=== PATIENT | female | born 1985 | race Caucasian/White ===

== ENCOUNTER 2020-03-29 19:50 | Emergency (ER) | payer OTHER ==
[2020-03-29 19:59] VITALS: BMI 31.8
--- NOTE | 2020-03-29 20:09 | PDOC ---
History of Present Illness - General Chief Complaint: Injury Stated Complaint: 8 MONTHS PREG/FALL History Source: Patient Exam Limitations: No Limitations - History of Present Illness Initial Comments: 03/29/20 20:37 34 yo 8 month female no sig medical hx presents to ED via EMS after blunt abdominal trauma and fall with abdominal pain, shoulder pain and bilateral hip pain. [place] the [place] shopping cart bumped her abdomen and leading her to loose balance and fell hitting her abdomen The patient is a 34 year old 8 months female with no significant past medical history who presents to the ED s/p fall with abdominal pain. As per EMS, patient fell at home and now complains of abdominal pain. Per patient, she cannot recall the events leading up to or post fall. Past History - Medical History Allergies/Adverse Reactions: Allergies Allergy/AdvReac Type Severity Reaction Status Date / Time No Known Allergies Allergy Verified 03/29/20 19:59 - Psycho-Social/Smoking History Smoking History: Never smoked Have you smoked in the past 12 months: No Information on smoking cessation initiated: No - Substance Abuse Hx (Audit-C & DAST Scrn) How often the patient has a drink containing alcohol: Never Score: In Men: 4 or > Positive; In Women: 3 or > Positive: 0 Screen Result (Pos requires Nsg. Audit-10AR): Negative In the last yr the pt used illegal drug/Rx for NonMed reason: No Score: Yes response is considered Positive: 0 Screen Result (Positive result requires Nsg. DAST-10): Negative *Physical Exam - Vital Signs Last Vital Signs Temp Pulse Resp BP Pulse Ox 98.1 F 106 H 22 H 124/78 96 03/29/20 19:54 03/29/20 19:54 03/29/20 19:54 03/29/20 19:54 03/29/20 19:54 Discharge - Discharge Information Problems reviewed: Yes Clinical Impression/Diagnosis: Trauma during Condition: Fair Disposition: TRANSFER ACUTE CARE/OTHER HOSP - Follow up/Referral - Patient Discharge Instructions - Post Discharge Activity
--- NOTE | 2020-03-29 20:24 | PDOC ---
Documentation entered by Mathew Bailey SCRIBE, acting as scribe for Cindi Chavez DO. Cindi Chavez DO: This documentation has been prepared by the Lynn cheek Nirvannie, SCRIBE, under my direction and personally reviewed by me in its entirety. I confirm that the documentation accurately reflects all work, treatment, procedures, and medical decision making performed by me. Attending Attestation - Resident Resident Name: Nikko Booker - ED Attending Attestation I have performed the following: I have examined & evaluated the patient, The case was reviewed & discussed with the resident, I agree w/resident's findings & plan, Exceptions are as noted - HPI HPI: 03/29/20 20:16 The patient is a 34 year old 8 months female with no significant past medical history who presents to the ED s/p fall with abdominal pain. As per EMS, patient fell at home and now complains of abdominal pain. Per patient, she cannot recall the events leading up to or post fall. - Physicial Exam PE: 03/29/20 20:16 Agree with resident exam. - Medical Decision Making 34-year-old female status post blunt trauma to the lower abdomen currently 8 weeks gestational age with pain to the lower pelvis and right hip Bedside fast was negative performed by another emergency department attending heart rate is in the 120s Due to gravid state as well as trauma and decreased heart rate will transfer to tertiary care trauma center, 03/29/20 19:54 Call placed to [facility] for a code red trauma transfer. 20:03 Resident, Dr. Alexandra Booker discussed case with Dr. Patel, trauma attending, case accepted. Transportation ETA 35min or less by [facility]. 03/29/20 20:22 Discharge - Discharge Information Problems reviewed: Yes Clinical Impression/Diagnosis: Trauma during Condition: Fair - Follow up/Referral - Patient Discharge Instructions - Post Discharge Activity
[2020-03-29 20:53] VITALS: BP 123/85; PULSE 86
[2020-03-29 20:56] LABS: BASO % 0.3 % (0-2.0); EOS % 1.2 % (0-4.5); HEMATOCRIT 38.4 % (32.4-45.2); HEMOGLOBIN 12.8 GM/dL (10.7-15.3); LYMPH % 23.6 % (8-40); MCH 30.3 pg (25.7-33.7); MCHC 33.3 g/dl (32.0-36.0); MEAN CELL VOLUME 91.1 fl (80-96); MEAN PLT VOLUME 7.3 fl (7.5-11.1); MONO % 7.3 % (3.8-10.2); NEUT % 67.6 % (42.8-82.8); PLATELET COUNT 283 K/MM3 (134-434); RBC 4.21 M/mm3 (3.60-5.2); WHITE BLOOD COUNT 12.7 K/mm3 (4.0-10.0)
[2020-03-29 21:03] LABS: INR 1.05 (0.83-1.09); PROTHROMBIN TIME (PATIENT) 12.4 SEC (9.7-13.0)
[2020-03-29 21:18] LABS: ALBUMIN 3.1 g/dl (3.4-5.0); BILIRUBIN,TOTAL 0.3 mg/dL (0.2-1); BLOOD UREA NITROGEN 9.3 mg/dL (7-18); CALCIUM 9.6 mg/dL (8.5-10.1); CREATININE 0.4 mg/dL (0.55-1.3); POTASSIUM 4.1 mmol/L (3.5-5.1); TOT PROT 6.8 g/dl (6.4-8.2)
[2020-03-30 06:03] VITALS: TEMP 98.7
== END 2020-03-29 21:00 | disposition short-term general hospital (02) ==
LOC: JER 19:50
DX: O9A.213 Injury, poisoning and certain other consequences of external causes complicating pregnancy, third trimester (principal)
CPT/HCPCS: 36415; 80053; 85025; 85610; 86850; 86900; 86901; 99284-25

== ENCOUNTER 2020-05-25 12:25 | Inpatient (IN) | payer OTHER ==
[2020-05-25 13:42] VITALS: BMI 39.0
[2020-05-25] MEDS ORDERED: CITRIC ACID/SODIUM CITRATE 30 ML UNIT-DOSE CUP PO ONE (14:28)
[2020-05-25] MEDS ORDERED: ELECTROLYTE-148 SOLN 1,000 ML IV SCH (14:30)
--- NOTE | 2020-05-25 14:37 | HP ---
Past Medical History - Primary Care Physician PCP:: Jelani Alcaraz - Admission History Source: Patient Limitations to Obtaining History: Language Barrier - Past Medical History ...: 3 ...Para: 1 ...Term: 1 ...Spon : 1 ...Living Children: 1 ...LMP: 08/21/19 - Past Surgical History Past Surgical History: Yes: (c section x one for failed dilatation) Hx Myomectomy: No Hx Transabdominal Cerclage: No - Smoking History Smoking history: Never smoked Have you smoked in the past 12 months: No - Alcohol/Substance Use Hx Alcohol Use: No History of Substance Use: reports: None - Social History History of Recent Travel: No Home Medications - Allergies Allergies/Adverse Reactions: Allergies Allergy/AdvReac Type Severity Reaction Status Date / Time No Known Allergies Allergy Verified 05/25/20 14:02 - Home Medications Home Medications: Ambulatory Orders Vit 93/Iron Fum/Folic [ Formula Tablet] 1 each PO DAILY 04/23/20 Review of Systems - Review of Systems Constitutional: reports: No Symptoms Eyes: reports: No Symptoms HENT: reports: No Symptoms Neck: reports: No Symptoms Cardiovascular: reports: No Symptoms Respiratory: reports: No Symptoms Gastrointestinal: reports: No Symptoms Genitourinary: reports: No Symptoms Breasts: reports: No Symptoms Reported Musculoskeletal: reports: No Symptoms Integumentary: reports: No Symptoms Neurological: reports: No Symptoms Endocrine: reports: No Symptoms Hematology/Lymphatic: reports: No Symptoms Psychiatric: reports: No Symptoms Physical Exam - Maternity Vital Signs: Vital Signs Temperature 98.2 F 05/25/20 13:36 Pulse Rate 82 05/25/20 13:36 Respiratory Rate 18 05/25/20 13:36 Blood Pressure 118/70 05/25/20 13:36 O2 Sat by Pulse Oximetry (%) Constitutional: Yes: Well Nourished, No Distress, Calm, Obese Eyes: Yes: WNL, Conjunctiva Clear, EOM Intact HENT: Yes: WNL, Atraumatic, Normocephalic Neck: Yes: WNL, Supple, Trachea Midline Cardiovascular: Yes: WNL, Regular Rate and Rhythm Breast(s): Yes: WNL - Abdominal Exam/OB Fundal Height: 40 Number of Fetuses: Single Presentation: Vertex Contractions: No Intensity: Unaware Monitor Mode: External Heart Rate Location: LLQ Accelerations: Non-Uniform Decelerations: None - Vaginal Exam/OB Speculum Exam: Yes Dilatation (cm): 0 Effacement (%): 0 Amniotic Membrane Status: Intact Presentation: Vertex/Position Station: -3 - Physical Exam Musculoskeletal: Yes: WNL Extremities: Yes: WNL Edema: Yes Edema: LLE: Trace, RLE: Trace Deep Tendon Reflex Grade: Normal +2 ...Motor Strength: WNL Psychiatric: Yes: WNL Hemorrhage Risk Assessment - Risk Factors Medium Risk Factors: Yes: Prior , uterine surgery,or multiple laparotomies Risk Score: 1 Risk Level: Medium Risk Problem List - Problems (1) with 39 completed weeks gestation Code(s): Z3A.39 - 39 WEEKS GESTATION OF (2) Previous section complicating Code(s): O34.219 - MATERNAL CARE FOR UNSP TYPE SCAR FROM PREVIOUS DEL Assessment/Plan requesting repeat c/s, vs repeat c/s explained , ri`sks `associ`ated w`itg c/s has explained to patient
[2020-05-25 14:42] LABS: BASO % 0.3 % (0-2.0); EOS % 0.4 % (0-4.5); HEMOGLOBIN 11.4 GM/dL (10.7-15.3); LYMPH % 19.7 % (8-40); MCH 31.4 pg (25.7-33.7); MCHC 34.6 g/dl (32.0-36.0); MEAN CELL VOLUME 90.7 fl (80-96); MEAN PLT VOLUME 7.4 fl (7.5-11.1); MONO % 6.7 % (3.8-10.2); NEUT % 72.9 % (42.8-82.8); PLATELET COUNT 241 K/MM3 (134-434); RBC 3.64 M/mm3 (3.60-5.2); RDW 13.5 % (11.6-15.6); WHITE BLOOD COUNT 9.9 K/mm3 (4.0-10.0)
[2020-05-25] MEDS ORDERED: SUCCINYLCHOLINE CHLORIDE 200 MG/10 ML SYRINGE ONE (14:46)
[2020-05-25] MEDS ORDERED: morphine SULFATE/PF 0.5 MG/ML (2cc Syringe - QUVA) ONE (14:46)
[2020-05-25] MEDS ORDERED: PROPOFOL 20 ML ONE (14:46)
[2020-05-25] MEDS ORDERED: MIDAZOLAM HCL 2 MG/2 ML SINGLE DOSE VIAL ONE (14:46)
[2020-05-25] MEDS ORDERED: morphine SULFATE/PF 0.5 MG/ML (2cc Syringe - QUVA) SPIN ONE (14:50)
[2020-05-25 14:53] LABS: INR 1.04 (0.83-1.09); PROTHROMBIN TIME (PATIENT) 12.3 SEC (9.7-13.0)
[2020-05-25 14:56] LABS: ACTIVATED PTT 27.2 SECONDS (25.2-36.5)
[2020-05-25] MEDS ORDERED: ePHEDrine SULFATE 50 MG/1 ML AMPULE ONE (15:00)
[2020-05-25] MEDS ORDERED: PHENYLEPHRINE HCL 10 MG/1 ML SINGLE DOSE VIAL ONE (15:00)
[2020-05-25] MEDS ORDERED: OXYTOCIN 20 UNITS in 0.9% NS 20 UNIT/1,000 ML INFUS.BAG IV ONE (15:03)
[2020-05-25 15:13] LABS: ALBUMIN 2.2 g/dl (3.4-5.0); BILIRUBIN,TOTAL 0.4 mg/dL (0.2-1); BLOOD UREA NITROGEN 9.1 mg/dL (7-18); CREATININE 0.3 mg/dL (0.55-1.3); POTASSIUM 4.2 mmol/L (3.5-5.1); TOT PROT 4.9 g/dl (6.4-8.2)
[2020-05-25 15:18] LABS: CALCIUM 6.8 mg/dL (8.5-10.1)
[2020-05-25 15:55] LABS: CORD BASE EXCESS -1.4 mmol/L (0-2); CORD HCO3 24.3 mmHg (20-29); CORD PCO2 44.6 mmHg (30-78); CORD pH 7.354 (7.14-7.44)
[2020-05-25 15:56] LABS: CORD BASE EXCESS 0.4 mmol/L (0-2); CORD HCO3 27.5 mmHg (20-29); CORD PCO2 54.8 mmHg (30-78); CORD pH 7.319 (7.14-7.44)
[2020-05-25] MEDS ORDERED: ONDANSETRON 4 MG/2 ML VIAL IVPUSH PRN (15:58)
[2020-05-25] MEDS ORDERED: BENZOCAINE 28 GM HEMORRHOIDAL OINTMENT PR PRN (16:32)
[2020-05-25] MEDS ORDERED: WITCH HAZEL 50% (TUCKS) 40 PAD/JAR PAD TP PRN (16:32)
[2020-05-25] MEDS ORDERED: oxyCODONE HCL 5 MG TABLET PO PRN ×2 (16:32)
[2020-05-25] MEDS ORDERED: METHYLERGONOVINE MALEATE 0.2 MG/1 ML AMP IM PRN (16:32)
[2020-05-25] MEDS ORDERED: BENZOCAINE 20% 57 GM BOTTLE TP PRN (16:32)
[2020-05-25] MEDS ORDERED: diphenhydrAMINE HCL 25 MG CAPSULE (FP) PO PRN (16:32)
--- NOTE | 2020-05-25 16:37 | OP ---
Operative Note - Note: Operative Date: 05/25/20 Pre-Operative Diagnosis: 39 weeks, previous c/s Operation: repeat LST c/s Findings: live baby girl 9/9 ROT, light mec. AF Surgeon: Jelani Alcaraz Computer Forensic Examiner: Andrew Valdez Anesthesia: Spinal Specimens Removed: placenta Estimated Blood Loss (mls): 500 Drains & Tubes with Location: damon Fluid Volume Replaced (mls): 0 Operative Report Dictated: Yes
[2020-05-25] MEDS ORDERED: OXYTOCIN 20 UNITS in 0.9% NS 20 UNIT/1,000 ML INFUS.BAG IV SCH (16:45)
[2020-05-25] MEDS ORDERED: DEXTROSE 5%-LACTATED RINGERS 1,000 ML IV SCH (16:45)
[2020-05-25] MEDS: IBUPROFEN 800 MG/8 ML IJ IVPB PRN ×2 (16:45→22:57)
[2020-05-25] MEDS ORDERED: IBUPROFEN 800 MG/8 ML IJ IVPB ONE (16:59)
--- NOTE | 2020-05-25 17:43 | OP ---
DATE OF OPERATION: 05/25/2020 PREOPERATIVE DIAGNOSIS: , 39 weeks, previous section, request of repeat section. POSTOPERATIVE DIAGNOSIS: , 39 weeks, previous section, request of repeat section. PROCEDURE: Repeat low segment transverse section. SURGEON: Sacha Alcaraz MD. ELECTRO OPTICAL ENGINEER: CATRACHO Owens. ANESTHESIA: Spinal. ESTIMATED BLOOD LOSS: 500 mL. FINDINGS: A live baby girl ROT position, Apgars 9 and 9, light meconium amniotic fluid was noted. OPERATION: Patient was taken to operating room with adequate epidural anesthesia. Abdomen and perineum were prepped and draped. Pfannenstiel abdominal skin incision was made over the previous incision. Abdominal wall was cut layer by layer until the peritoneum was exposed and incised. Upon entering the abdominal cavity, the lower uterine segment was identified, and uterovesical fold of the peritoneum was established. The bladder was pushed down. A low transverse incision was made. The incision extended laterally with bandage scissors. Amniotic sac was entered. Light meconium amniotic fluid noted. Head delivered from ROT position. Nasopharynx was suctioned. A live baby girl was delivered, Apgars 9 and 9. Placenta was delivered manually. Uterine cavity was cleared of all remaining tissue. Uterine incision was closed in 2 layers, the 1st layer with 0 Biosyn continuous suture, the 2nd layer with 0 Biosyn imbricating the 1st layer. Bladder flap was closed with 0 Biosyn continuous suture. Both tubes and ovaries were checked and were normal. No active bleeding was seen. All the lap, sponge, and instrument counts were correct. Peritoneum was closed with 0 Biosyn continuous suture. Muscles were brought together interrupted suture with 0 Biosyn. Fascia was closed with 0 Biosyn continuous sutures. Subcutaneous fat interrupted sutures 0 Biosyn, and the skin was closed with 3-0 Vicryl subcuticular continuous suture. The patient tolerated the procedure well and left the OR in good condition. SACHA ALCARAZ M.D. [id number]
[2020-05-25] MEDS: CEFAZOLIN 1 GM/D5W 1 GM/50 ML BAG IVPB SCH (18:17)
[2020-05-26] MEDS: CEFAZOLIN 1 GM/D5W 1 GM/50 ML BAG IVPB SCH (00:59)
--- NOTE | 2020-05-26 07:26 | PN ---
Progress Note (short form) - Note Progress Note: pod 1 s/p repeat c/s , doing wel, no excess vaginal bleeding CBC, BMP 05/25/20 14:09 05/25/20 14:09 Last Vital Signs Temp Pulse Resp BP Pulse Ox 98.2 F 79 20 100/53 L 97 05/26/20 06:00 05/26/20 06:00 05/26/20 06:00 05/26/20 06:00 05/25/20 17:52 abdomen soft, no distension, no cva BS present incision dry, clean , no discharge no calf tenderness plan ambulate , cbc advance diet Problem List - Problems (1) with 39 completed weeks gestation Code(s): Z3A.39 - 39 WEEKS GESTATION OF (2) Previous section complicating Code(s): O34.219 - MATERNAL CARE FOR UNSP TYPE SCAR FROM PREVIOUS DEL
[2020-05-26 09:00] LABS: BASO % 0.2 % (0-2.0); EOS % 0.5 % (0-4.5); HEMATOCRIT 31.2 % (32.4-45.2); HEMOGLOBIN 10.6 GM/dL (10.7-15.3); LYMPH % 15.5 % (8-40); MCH 30.8 pg (25.7-33.7); MEAN CELL VOLUME 90.6 fl (80-96); MEAN PLT VOLUME 7.3 fl (7.5-11.1); MONO % 7.4 % (3.8-10.2); NEUT % 76.4 % (42.8-82.8); PLATELET COUNT 237 K/MM3 (134-434); RBC 3.44 M/mm3 (3.60-5.2); RDW 13.8 % (11.6-15.6); WHITE BLOOD COUNT 11.1 K/mm3 (4.0-10.0)
[2020-05-26] MEDS: IBUPROFEN 600 MG TABLET (FP) PO PRN ×2 (10:44→21:26)
[2020-05-26] MEDS: SIMETHICONE 80 MG TAB.CHEW (FP) PO PRN ×2 (10:44→21:25)
[2020-05-26] MEDS: ENOXAPARIN NA (PORCINE) 40 MG/0.4 ML DISP.SYRIN SQ SCH (10:45)
[2020-05-26] MEDS: ACETAMINOPHEN 325 MG TABLET (FP) PO PRN ×2 (10:45→21:25)
[2020-05-26] MEDS: IBUPROFEN 800 MG/8 ML IJ IVPB PRN (14:31)
[2020-05-26] MEDS ORDERED: BISACODYL 10 MG SUPP.RECT PR PRN (16:32)
[2020-05-26 20:01] LABS: EPI CELLS 28 /uL (0-25.1); HYALINE CASTS 1 /uL (0-3.1); PH,URINE 5.5 (5.0-8.0); URINE APPEARANCE CLEAR; URINE BACTERIA 368 /uL (0-1359); URINE BILIRUBIN NEGATIVE (NEGATIVE); URINE COLOR ORANGE; URINE GLUCOSE (UA) NEGATIVE (NEGATIVE); URINE KETONE 1+ (NEGATIVE); URINE LEUK ESTERASE 1+ (NEGATIVE); URINE NITRITE NEGATIVE (NEGATIVE); URINE PROTEIN TRACE (NEGATIVE); URINE RBC 3292 /uL (0-23.9); URINE UROBILINOGEN 0.2 mg/dL (0.2-1.0); URINE WBC 62 /uL (0-25.8)
[2020-05-27] MEDS: IBUPROFEN 600 MG TABLET (FP) PO PRN ×2 (03:38→21:44)
[2020-05-27] MEDS: ACETAMINOPHEN 325 MG TABLET (FP) PO PRN ×3 (03:38→21:43)
--- NOTE | 2020-05-27 08:36 | PN ---
Post Progress Note - Subjective Subjective: pt c/o pain 4/10 . voiding without difficulty . bm not done Post Day: 2 Type of Delivery: Repeat C/S Vital Signs: Vital Signs Temperature 98.3 F 05/26/20 22:00 Pulse Rate 91 H 05/26/20 22:00 Respiratory Rate 18 05/26/20 22:00 Blood Pressure 112/63 05/26/20 22:00 O2 Sat by Pulse Oximetry (%) 97 05/25/20 17:52 Breast Exam: Yes: Soft, Other (attempting to breast feed ). No: Engorged Uterus: Yes: Fundus Firm, Non-tender Incision: Yes: Dressing dry and intact (to be changed ) Abdomen/GI: Yes: Abdomen soft, Passing flatus, Tolerating PO (reg diet ). No: Abdominal Distention, Tender Lochia: Yes: Rubra Lochia, amount: Moderate Extremities: Yes: Calves non-tender Perineum: Yes: Intact Activity: Ambulating - Labs Labs: CBC WBC 11.1 K/mm3 (4.0-10.0) H 05/26/20 07:39 RBC 3.44 M/mm3 (3.60-5.2) L 05/26/20 07:39 Hgb 10.6 GM/dL (10.7-15.3) L 05/26/20 07:39 Hct 31.2 % (32.4-45.2) L 05/26/20 07:39 MCV 90.6 fl (80-96) 05/26/20 07:39 MCH 30.8 pg (25.7-33.7) 05/26/20 07:39 MCHC 34.0 g/dl (32.0-36.0) 05/26/20 07:39 RDW 13.8 % (11.6-15.6) 05/26/20 07:39 Plt Count 237 K/MM3 (134-434) 05/26/20 07:39 MPV 7.3 fl (7.5-11.1) L 05/26/20 07:39 Absolute Neuts (auto) 8.5 K/mm3 (1.5-8.0) H 05/26/20 07:39 Neutrophils % 76.4 % (42.8-82.8) 05/26/20 07:39 Lymphocytes % 15.5 % (8-40) D 05/26/20 07:39 Monocytes % 7.4 % (3.8-10.2) 05/26/20 07:39 Eosinophils % 0.5 % (0-4.5) 05/26/20 07:39 Basophils % 0.2 % (0-2.0) 05/26/20 07:39 Nucleated RBC % 0 % (0-0) 05/26/20 07:39 Problem List - Problems (1) Status post section routine follow-up Code(s): Z39.2 - ENCOUNTER FOR ROUTINE FOLLOW-UP; Z98.891 - HISTORY OF UTERINE SCAR FROM PREVIOUS SURGERY Assessment/Plan stable s/p rc/section day #2 . Plan encourage deep breathing , ambulatiion .plenty po fluids discharge tomorrow.
[2020-05-27] MEDS: ENOXAPARIN NA (PORCINE) 40 MG/0.4 ML DISP.SYRIN SQ SCH (09:43)
[2020-05-27] MEDS: SIMETHICONE 80 MG TAB.CHEW (FP) PO PRN ×2 (09:43→21:43)
[2020-05-27] MEDS ORDERED: SENNOSIDES/DOCUSATE COMBO (SENNA PLUS) TABLET (UD) PO PRN (22:00)
[2020-05-28] MEDS: SIMETHICONE 80 MG TAB.CHEW (FP) PO PRN (03:16)
[2020-05-28] MEDS: IBUPROFEN 600 MG TABLET (FP) PO PRN ×2 (03:16→09:43)
[2020-05-28] MEDS: ACETAMINOPHEN 325 MG TABLET (FP) PO PRN ×2 (03:18→09:42)
[2020-05-28 08:44] LABS: BASO % 0.3 % (0-2.0); EOS % 1.8 % (0-4.5); HEMATOCRIT 30.4 % (32.4-45.2); HEMOGLOBIN 10.4 GM/dL (10.7-15.3); LYMPH % 26.9 % (8-40); MCHC 34.2 g/dl (32.0-36.0); MEAN CELL VOLUME 90.7 fl (80-96); MEAN PLT VOLUME 7.2 fl (7.5-11.1); MONO % 7.4 % (3.8-10.2); NEUT % 63.6 % (42.8-82.8); PLATELET COUNT 259 K/MM3 (134-434); RBC 3.35 M/mm3 (3.60-5.2); RDW 13.7 % (11.6-15.6); WHITE BLOOD COUNT 8.2 K/mm3 (4.0-10.0)
[2020-05-28] MEDS: ENOXAPARIN NA (PORCINE) 40 MG/0.4 ML DISP.SYRIN SQ SCH ×2 (09:41→09:45)
[2020-05-28 12:44] VITALS: BP 111/74; PULSE 71; TEMP 97.7
--- NOTE | 2020-05-28 12:45 | DS ---
Physical Exam-DIRECTOR OF PLANNING Vital Signs: Vital Signs Temperature 99.5 F 05/27/20 22:00 Pulse Rate 87 05/27/20 22:00 Respiratory Rate 18 05/27/20 22:00 Blood Pressure 114/68 05/27/20 22:00 O2 Sat by Pulse Oximetry (%) 97 05/25/20 17:52 Constitutional: Yes: Well Nourished, Obese, Other (pain scale5/10) Eyes: Yes: WNL HENT: Yes: WNL Neck: Yes: WNL Cardiovascular: Yes: WNL Respiratory: Yes: WNL Gastrointestinal: Yes: WNL, Normal Bowel Sounds, Abdomen, Obese. No: Distention, Vomiting Renal/: Yes: WNL, Other (voiding without difficulty). No: CVA Tenderness - Left, CVA Tenderness - Right ....Post : Yes: Uterus firm, Uterus non-tender, Moderate lochia rubra Breast(s): Yes: WNL (BF , not engorged) Musculoskeletal: Yes: WNL Extremities: Yes: WNL. No: Calf Tenderness Edema: LLE: 1+, RLE: 1+ Wound/Incision: Yes: Clean/Dry, Well Approximated, Sutures Intact, Steri Strips, Open to air. No: Draining, Reddened, Bleeding, Excoriated Neurological: Yes: WNL, Alert, Oriented ...Motor Strength: WNL Psychiatric: Yes: WNL, Alert, Oriented Labs: CBC, BMP 05/28/20 07:31 05/25/20 14:09 Delivery - Delivery Type of Anesthesia: Spinal EBL (cc): 500 Delivery, Single - Stages of Labor Date of Delivery: 05/25/20 Time of Delivery: 15:13 Time Placenta Delivered: 15:14 - Condition of Infant Underwriting Account Representative/County Or City Auditor Present: Yes Name: Meagan Han Gender: Female Weight: 8 lb 12 oz Position: OA Total Hours ROM (Hrs/Mins): 1M - 1 Minute Total Score: 9 5 Minutes Total Score: 9 - [place] Feeding Plan Initial Plan: Elected not to breastfeed exclusively throughout hospitalization Remarks - Remarks Remarks: post op course uneventful, discharge today. she will follow with Dr Alcaraz in the clinic in 1 wk Discharge Summary Problems reviewed: Yes Reason For Visit: Current Active Problems with 39 completed weeks gestation (Acute) Previous section complicating (Acute) Status post section routine follow-up (Acute) Condition: Stable - Instructions Diet, Activity, Other Instructions: Discharge Instructions * Out of Bed * * Regular Diet * Alisha Care * Avoid sex for 6 weeks * rtc 1 week for wound check If you experience excessive bleeding or fever over 101 degrees, call doctor, the clinic or go to the Emergency Room. Referrals: Jelani Alcaraz MD [Staff Physician] - Disposition: HOME - Home Medications Comprehensive Discharge Medication List: Ambulatory Orders Vit 93/Iron Fum/Folic [ Formula Tablet] 1 each PO DAILY 04/23/20 Acetaminophen [Tylenol .Regular Strength -] 500 mg PO Q4H PRN #30 tablet 05/26/20 Ibuprofen [Motrin -] 600 mg PO Q4H PRN #30 tablet 05/26/20 Iron Polysacch/Iron Heme Polyp [Feosol Bifera 28 mg Caplet] 28 mg PO DAILY #30 tablet 05/26/20 Miscellaneous Medical Supply [Breast Pump, Electronic] 1 each NR ASDIR #1 unit 05/26/20
--- NOTE | 2020-05-29 17:57 | PATH ---
Surgical Pathology Report Patient Name: LISA DIOP Med. Rec. 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 Specimen(s) Received PLACENTA Clinical History Final Diagnosis PLACENTA, SECTION: 422 G THIRD TRIMESTER PLACENTA WITH TRIVASCULAR UMBILICAL CORD AND UNREMARKABLE PLACENTAL MEMBRANES. Electronically Signed Jacinta Wakefield M.D. Gross Description The specimen is received fresh labeled placenta and is a 422 gram, 17 x17 x 1.8cm. placenta with attached membranes and umbilical cord. The attached membranes are glistening, translucent, and insert marginally. The umbilical cord measures 20 cm. in length and averages 1.2 cm. in diameter. The cord inserts centrally, 5 centimeter to the nearest margin. No true knots or strictures are identified. Cut surface of the umbilical cord reveals 3 vessels. Sectioning reveals red-brown, spongy parenchyma. No lesions are identified. Industrial Engineering Intern sections are submitted in three cassettes as follows: 1- membrane rolls and umbilical cord; 2-3- full thickness sections of placenta KWS/05/26/2020 onielki/05/26/2020
== END 2020-05-28 13:10 | disposition home or self-care (01) | DRG 540 ==
LOC: JLDR 12:25 → J3W 17:35
PROVIDERS: ADMIT Obstetrics & Gynecology; ATTEND Obstetrics & Gynecology
PROC: 10D00Z1 Extraction of Products of Conception, Low, Open Approach (ICD-10-PCS; principal; 2020-05-25)
DX: O82 Encounter for cesarean delivery without indication (principal); O34.211 Maternal care for low transverse scar from previous cesarean delivery; E66.9 Obesity, unspecified; O99.214 Obesity complicating childbirth; Z37.0 Single live birth; Z3A.39 39 weeks gestation of pregnancy; O77.0 Labor and delivery complicated by meconium in amniotic fluid
CPT/HCPCS: 36415; 36600; 80053; 81003; 82803; 85025; 85610; 85730; 86762; 86780; 86850; 86900; 86901; 87340; 88307-TC

== ENCOUNTER 2021-06-27 10:18 | Emergency (ER) | payer OTHER ==
[2021-06-27 10:33] VITALS: BP 131/69; PULSE 107; TEMP 97.7; BMI 34.3
[2021-06-27 11:48] LABS: BASO % 0.2 % (0-2.0); EOS % 1.2 % (0-4.5); HEMATOCRIT 34.6 % (32.4-45.2); HEMOGLOBIN 11.9 GM/dL (10.7-15.3); LYMPH % 22.9 % (8-40); MCH 30.7 pg (25.7-33.7); MCHC 34.4 g/dl (32.0-36.0); MEAN PLT VOLUME 6.9 fl (7.5-11.1); MONO % 6.4 % (3.8-10.2); NEUT % 69.3 % (42.8-82.8); PLATELET COUNT 310 10^3/uL (134-434); RBC 3.89 M/mm3 (3.60-5.2); RDW 12.8 % (11.6-15.6); WHITE BLOOD COUNT 12.2 K/mm3 (4.0-10.0)
[2021-06-27 11:50] LABS: URINE APPEARANCE CLEAR; URINE BILIRUBIN NEGATIVE (NEGATIVE); URINE COLOR YELLOW; URINE GLUCOSE (UA) NEGATIVE (NEGATIVE); URINE KETONE NEGATIVE (NEGATIVE); URINE LEUK ESTERASE NEGATIVE (NEGATIVE); URINE NITRITE NEGATIVE (NEGATIVE); URINE PROTEIN NEGATIVE (NEGATIVE)
[2021-06-27 12:14] LABS: BLOOD UREA NITROGEN 8.2 mg/dL (7-18)
[2021-06-27 12:17] LABS: CREATININE 0.4 mg/dL (0.55-1.3)
[2021-06-27 12:19] LABS: BILIRUBIN,TOTAL 0.3 mg/dL (0.2-1); TOT PROT 6.4 g/dl (6.4-8.2)
== END 2021-06-27 13:45 | disposition home or self-care (01) ==
LOC: JERFT 10:18
DX: O26.852 Spotting complicating pregnancy, second trimester (principal); Z3A.14 14 weeks gestation of pregnancy
CPT/HCPCS: 36415; 76815; 80053; 81003; 84702; 85025; 86850; 86900; 86901; 87086; 99284-25

== ENCOUNTER 2021-12-11 07:45 | Inpatient (IN) | payer OTHER ==
[2021-12-11] MEDS ORDERED: CITRIC ACID/SODIUM CITRATE 30 ML UNIT-DOSE CUP PO ONE (08:53)
[2021-12-11] MEDS ORDERED: ELECTROLYTE-148 SOLN 1,000 ML IV SCH (09:00)
[2021-12-11 09:24] VITALS: BMI 42.0
[2021-12-11] MEDS ORDERED: OXYTOCIN 20 UNITS in 0.9% NS 20 UNIT/1,000 ML INFUS.BAG IV ONE (09:52)
[2021-12-11] MEDS ORDERED: morphine SULFATE/PF 1 MG/2 ML (2cc Syringe - QUVA) ONE (09:54)
[2021-12-11] MEDS ORDERED: morphine SULFATE/PF 1 MG/2 ML (2cc Syringe - QUVA) EP ONE (10:30)
[2021-12-11] MEDS ORDERED: ONDANSETRON 4 MG/2 ML VIAL IVPUSH PRN (10:30)
[2021-12-11] MEDS ORDERED: KETOROLAC TROMETHAMINE 30 MG/1 ML VIAL ONE (11:23)
[2021-12-11] MEDS ORDERED: ceFAZolin SODIUM 1 GM VIAL ONE ×2 (11:23→17:51)
[2021-12-11] MEDS ORDERED: DEXAMETHASONE SOD PHOSPHATE 4 MG/1 ML VIAL ONE (11:23)
[2021-12-11] MEDS ORDERED: ONDANSETRON 4 MG/2 ML VIAL ONE ×2 (11:23→11:57)
[2021-12-11] MEDS ORDERED: OXYTOCIN 10 UNITS/ML VIAL ONE (11:23)
[2021-12-11] MEDS ORDERED: ACETAMINOPHEN 325 MG TABLET (FP) PO PRN (11:55)
[2021-12-11] MEDS ORDERED: METHYLERGONOVINE MALEATE 0.2 MG/1 ML AMP IM PRN (11:55)
[2021-12-11] MEDS ORDERED: IBUPROFEN 600 MG TABLET (FP) PO PRN (11:55)
[2021-12-11] MEDS ORDERED: IBUPROFEN 800 MG/8 ML IJ IVPB PRN (11:55)
[2021-12-11] MEDS: OXYTOCIN 20 UNITS in 0.9% NS 20 UNIT/1,000 ML INFUS.BAG IV SCH (12:00)
[2021-12-11 12:39] LABS: CORD HCO3 24.8 mmHg (20-29); CORD PCO2 49.4 mmHg (30-78); CORD pH 7.319 (7.14-7.44)
[2021-12-11 12:43] LABS: CORD BASE EXCESS 0.3 mmol/L (0-2); CORD HCO3 29.2 mmHg (20-29); CORD pH 7.27 (7.14-7.44)
[2021-12-11] MEDS ORDERED: DEXTROSE 5%-WATER - 50 ML IVPB ONE (17:51)
[2021-12-11] MEDS: CEFAZOLIN 1 GM in DEXTROSE 5%-WATER - 50 ML IVPB SCH (18:02)
[2021-12-11] MEDS ORDERED: oxyCODONE HCL 5 MG TABLET PO PRN (23:56)
[2021-12-12] MEDS ORDERED: DEXTROSE 5%-WATER - 50 ML IVPB ONE ×2 (02:03→09:05)
[2021-12-12] MEDS ORDERED: ceFAZolin SODIUM 1 GM VIAL ONE ×2 (02:03→09:05)
[2021-12-12] MEDS: CEFAZOLIN 1 GM in DEXTROSE 5%-WATER - 50 ML IVPB SCH ×2 (02:30→09:12)
[2021-12-12] MEDS: OXYTOCIN 20 UNITS in 0.9% NS 20 UNIT/1,000 ML INFUS.BAG IV SCH (05:35)
[2021-12-12 07:45] LABS: BASO % 0.2 % (0-2.0); EOS % 0.5 % (0-4.5); HEMATOCRIT 34.3 % (32.4-45.2); HEMOGLOBIN 11.9 GM/dL (10.7-15.3); MCH 32.2 pg (25.7-33.7); MCHC 34.7 g/dl (32.0-36.0); MEAN CELL VOLUME 92.8 fl (80-96); MEAN PLT VOLUME 7.6 fl (7.5-11.1); MONO % 8.3 % (3.8-10.2); PLATELET COUNT 225 10^3/uL (134-434); RDW 13.7 % (11.6-15.6); WHITE BLOOD COUNT 10.7 K/mm3 (4.0-10.0)
[2021-12-12] MEDS: ENOXAPARIN NA (PORCINE) 40 MG/0.4 ML DISP.SYRIN SQ SCH (09:12)
[2021-12-12] MEDS ORDERED: BISACODYL 10 MG SUPP.RECT RC PRN (11:56)
[2021-12-12] MEDS: oxyCODONE HCL 5 MG TABLET PO PRN (19:00)
[2021-12-12] MEDS: SIMETHICONE 80 MG TAB.CHEW (FP) PO PRN (19:02)
[2021-12-13] MEDS: SIMETHICONE 80 MG TAB.CHEW (FP) PO PRN (04:10)
[2021-12-13] MEDS: oxyCODONE HCL 5 MG TABLET PO PRN (04:10)
[2021-12-13] MEDS: OXYTOCIN 20 UNITS in 0.9% NS 20 UNIT/1,000 ML INFUS.BAG IV SCH (04:16)
[2021-12-13] MEDS: ENOXAPARIN NA (PORCINE) 40 MG/0.4 ML DISP.SYRIN SQ SCH (09:22)
[2021-12-13 21:58] VITALS: TEMP 98.2
[2021-12-13] MEDS ORDERED: diphenhydrAMINE HCL 25 MG CAPSULE (FP) PO PRN (23:15)
[2021-12-14 07:41] LABS: BASO % 0.3 % (0-2.0); EOS % 1.4 % (0-4.5); HEMATOCRIT 35.6 % (32.4-45.2); LYMPH % 24.3 % (8-40); MCH 31.3 pg (25.7-33.7); MCHC 33.6 g/dl (32.0-36.0); MEAN CELL VOLUME 93.1 fl (80-96); MEAN PLT VOLUME 7.8 fl (7.5-11.1); PLATELET COUNT 282 10^3/uL (134-434); RBC 3.82 M/mm3 (3.60-5.2); RDW 13.6 % (11.6-15.6); WHITE BLOOD COUNT 9.2 K/mm3 (4.0-10.0)
[2021-12-14] MEDS: ENOXAPARIN NA (PORCINE) 40 MG/0.4 ML DISP.SYRIN SQ SCH (10:18)
[2021-12-14 12:02] VITALS: BP 130/77; PULSE 85
== END 2021-12-14 17:10 | disposition home or self-care (01) | DRG 540 ==
LOC: JLDR 07:45 → J3W 14:00
PROVIDERS: ADMIT Obstetrics & Gynecology; ATTEND Obstetrics & Gynecology
PROC: 10D00Z1 Extraction of Products of Conception, Low, Open Approach (ICD-10-PCS; principal; 2021-12-11)
PROC: 0UT70ZZ Resection of Bilateral Fallopian Tubes, Open Approach (ICD-10-PCS; 2021-12-11)
DX: O34.211 Maternal care for low transverse scar from previous cesarean delivery (principal); Z37.0 Single live birth; O99.214 Obesity complicating childbirth; E66.01 Morbid (severe) obesity due to excess calories; Z30.2 Encounter for sterilization; Z3A.39 39 weeks gestation of pregnancy
CPT/HCPCS: 36415; 36600; 82803; 85025; 88302-TC; 88307-TC